=== PATIENT | male | born 1995 | race Caucasian/White ===

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

== ENCOUNTER 2017-12-17 20:03 | Emergency (ER) | payer BC ==
[~2017-12-17] VITALS: Ht 172.7 cm; Wt 102.1 kg
[~2017-12-17 20:03] MED LIST changes: +VIBRAMYCIN100 MG PO
[2017-12-17] MEDS ORDERED: Motrin,Rufen800 MG PO (20:21)
== END 2017-12-17 21:29 | disposition home or self-care (01) ==
LOC: ED 20:03
DX: M25.511 Pain in right shoulder (principal); X50.3XXA Overexertion from repetitive movements, initial encounter; Y93.89 Activity, other specified; Y92.89 Other specified places as the place of occurrence of the external cause; Y99.8 Other external cause status

== ENCOUNTER 2018-09-03 03:42 | Emergency (ER) | payer BC ==
[~2018-09-03] VITALS: Ht 180.3 cm; Wt 97.5 kg
[~2018-09-03 03:42] MED LIST changes: +Motrin,Rufen800 MG PO
== END 2018-09-03 04:38 | disposition left against medical advice (07) ==
LOC: ED 03:42
DX: S00.83XA Contusion of other part of head, initial encounter (principal); S09.90XA Unspecified injury of head, initial encounter; F17.200 Nicotine dependence, unspecified, uncomplicated; Y04.0XXA Assault by unarmed brawl or fight, initial encounter; Y93.89 Activity, other specified; Y92.89 Other specified places as the place of occurrence of the external cause; Y99.9 Unspecified external cause status

== ENCOUNTER 2019-04-26 13:28 | Emergency (ER) | payer BC ==
[~2019-04-26] VITALS: Ht 177.8 cm; Wt 99.8 kg
[~2019-04-26 13:28] MED LIST changes: +ANAPROX DS550 MG PO; +CYCLOBENZAPRINE10 MG PO
[2019-04-26] MEDS ORDERED: ZYRTEC10 MG PO (14:14)
[2019-04-26] MEDS ORDERED: AMOXICILLIN500 M2 PO (14:14)
[2019-04-26] MEDS ORDERED: FLONASE ALLERG9.9 ML NAS (14:14)
== END 2019-04-26 14:22 | disposition home or self-care (01) ==
LOC: ED 13:28
DX: J02.9 Acute pharyngitis, unspecified (principal)

== ENCOUNTER 2019-10-11 20:23 | Emergency (ER) | payer BC ==
[~2019-10-11] VITALS: Ht 177.8 cm; Wt 99.8 kg
[~2019-10-11 20:23] MED LIST changes: +AMOXICILLIN500 M2 PO; +FLONASE ALLERG9.9 ML NAS; +ZYRTEC10 MG PO
[2019-10-11] MEDS ORDERED: PROAIR HFA8.5 GM INH (21:53)
[2019-10-11] MEDS ORDERED: ALLEGRA-D 24 H1 EACH PO (21:53)
[2019-10-11] MEDS ORDERED: FLONASE ALLERG9.9 ML NAS (21:53)
== END 2019-10-11 21:59 | disposition home or self-care (01) ==
LOC: ED 20:23
DX: J06.9 Acute upper respiratory infection, unspecified (principal); F17.200 Nicotine dependence, unspecified, uncomplicated; Z79.2 Long term (current) use of antibiotics; Z79.899 Other long term (current) drug therapy

== ENCOUNTER 2021-05-14 13:40 | Emergency (ER) | payer BC ==
[~2021-05-14] VITALS: Ht 177.8 cm; Wt 102.1 kg
[~2021-05-14 13:40] MED LIST changes: +ALLEGRA-D 24 H1 EACH PO; +PROAIR HFA8.5 GM INH
[2021-05-14 15:31] LABS: BASO % 0.2 % (0.0-1.0); HEMATOCRIT 43.2 % (42.0-52.0); MEAN CELL VOLUME 84.4 fl (80.0-94.0); MEAN CORPUSCULAR HGB 28.9 pg (27.0-31.0); MEAN CORPUSCULAR HGB CONC 34.3 g/dl (33.0-37.0); MEAN PLATELET VOLUME 9.7 fl (9.6-12.3); MONO # 0.4 10*3/uL (0.1-1.0); NEUT # 3.4 10*3/uL (2.3-7.9); NEUT % 69.9 % (47.0-73.0); PLATELET COUNT AUTOMATED 234 10*3/uL (130-400); RED BLOOD COUNT 5.12 10*6/uL (4.50-5.90); WHITE BLOOD COUNT 4.9 10*3/uL (4.8-10.8)
[2021-05-14 15:52] LABS: ALBUMIN 3.5 gm/dl (3.1-4.5); ALKALINE PHOSPHATASE 73 U/L (45-117); BUN 17 mg/dl (7-24); CHLORIDE 102 mmol/L (98-107); CREATININE 1.25 mg/dL (0.70-1.30); LIPASE 75 U/L (73-393); POTASSIUM 3.7 mmol/L (3.5-5.1); SGOT/AST 32 IU/L (3-35); SGPT/ALT 46 U/L (12-78); SODIUM 137 mmol/L (136-145); TOTAL PROTEIN 7.5 gm/dL (6.4-8.2)
[2021-05-14] MEDS ORDERED: ZOFRAN4 MG PO (17:23)
[2021-05-14] MEDS ORDERED: DECADRON6 M1 PO (17:23)
== END 2021-05-14 18:02 | disposition home or self-care (01) ==
LOC: ED 13:40
PROVIDERS: Physician Assistant
DX: R11.10 Vomiting, unspecified (principal); U07.1 COVID-19; R63.0 Anorexia; R42 Dizziness and giddiness